=== PATIENT | female | born 1935 | race Caucasian/White ===

== ENCOUNTER 2017-03-12 07:20 | Day surgery (SDC) | payer OTHER ==
[~2017-03-12 07:20] MED LIST: BEN25 PO; CALTRA600D PO; CIP5 PO; IMU PO; LIPITOR10 PO; LORTAB 5 PO; LOTREL1 CA1 PO; MULTIPLE VIT PO; MULTIVITAMI1 PO; NEXIUM40 PO; P10 PO; P5 PO; PCET PO; PREM45 PO; PREM625 PO; PRIN5 PO; PROTONIX PO; V5 PO; ZOCOR20 PO; ZOFRAN4 PO; ZOL100 PO
== END 2017-03-12 23:59 | disposition home or self-care (01) ==
LOC: SDC 07:20
PROVIDERS: Ophthalmology
PROC: 085K3ZZ Destruction of Left Lens, Percutaneous Approach (ICD-10-PCS; principal; 2017-03-12 08:15)
DX: H26.492 Other secondary cataract, left eye (principal); I10 Essential (primary) hypertension; M19.90 Unspecified osteoarthritis, unspecified site; F32.9 Major depressive disorder, single episode, unspecified; F41.9 Anxiety disorder, unspecified; E78.00 Pure hypercholesterolemia, unspecified; Z98.890 Other specified postprocedural states; Z98.41 Cataract extraction status, right eye; Z98.42 Cataract extraction status, left eye; Z90.710 Acquired absence of both cervix and uterus; Z96.1 Presence of intraocular lens; Z90.49 Acquired absence of other specified parts of digestive tract
CPT/HCPCS: A9270-GY